=== PATIENT | female | born 1990 | race Caucasian/White ===

== ENCOUNTER 2025-05-03 15:19 | Day surgery (SDC) | payer OTHER ==
[2025-05-03] MEDS ORDERED: hydrALAZINE 20 MG/ML VIAL SLOW IVP PRN (15:32)
[2025-05-03 15:44] VITALS: BMI 29.2
[2025-05-03 17:18] LABS: Glucose, Urine (Dipstick) Normal (Negative); Leukocyte Negative (Negative); Protein, Urine (Dipstick) Negative (Neg-Trace); Specific Gravity, Urine 1.010 (1.005-1.030)
[2025-05-03 18:00] LABS: CAUTI Indications for Culture Pregnancy; WBC/HPF 0-3 HPF (0-3)
[2025-05-03 18:01] LABS: Bacteria/HPF 1+ HPF (None Seen)
[2025-05-03 18:03] LABS: Mucous/LPF 1+ LPF (<2+)
[2025-05-03 18:04] LABS: Urine Culture Reflex Yes Yes
== END 2025-05-03 18:30 | disposition home or self-care (01) ==
LOC: CSHLD/OP 15:19
PROVIDERS: ATTEND Family Medicine
DX: O22.42 Hemorrhoids in pregnancy, second trimester (principal); O99.891 Other specified diseases and conditions complicating pregnancy; N89.8 Other specified noninflammatory disorders of vagina; R10.2 Pelvic and perineal pain; Z3A.27 27 weeks gestation of pregnancy
CPT/HCPCS: 81001; 87086; 87480; 87510; 87660

== ENCOUNTER 2025-05-12 17:00 | Day surgery (SDC) | payer OTHER ==
[2025-05-12 17:46] VITALS: BMI 30.4
[2025-05-12 18:11] LABS: Fetal Membranes Rupture No Membranes Rupture (No Rupture)
== END 2025-05-12 19:53 | disposition home or self-care (01) ==
LOC: CSHLD/OP 17:00
PROVIDERS: ATTEND Family Medicine
DX: O36.8130 Decreased fetal movements, third trimester, not applicable or unspecified (principal); O09.43 Supervision of pregnancy with grand multiparity, third trimester; Z3A.30 30 weeks gestation of pregnancy; Z87.59 Personal history of other complications of pregnancy, childbirth and the puerperium; Z79.899 Other long term (current) drug therapy
CPT/HCPCS: 76819; 84112; 87480; 87510; 87660; 99285

== ENCOUNTER 2025-05-25 18:19 | Day surgery (SDC) | payer OTHER | END 2025-05-25 19:55 | disposition home or self-care (01) | LOC: CSHERS 18:19 → CSHLD/OP 18:29 | PROVIDERS: ATTEND Family Medicine | DX: O99.891 Other specified diseases and conditions complicating pregnancy (principal); M54.9 Dorsalgia, unspecified; M25.559 Pain in unspecified hip; O09.43 Supervision of pregnancy with grand multiparity, third trimester; Z3A.30 30 weeks gestation of pregnancy; Z79.899 Other long term (current) drug therapy | CPT/HCPCS: 99283 ==

== ENCOUNTER 2025-06-07 13:09 | Day surgery (SDC) | payer OTHER ==
[2025-06-07 13:36] VITALS: BMI 30.4
[2025-06-07] MEDS: Lidocaine 2% Viscous Solution 10 ML, Aluminum & Magnesium Hydroxide 30 ML SSW SCH (14:37)
[2025-06-07] MEDS ORDERED: Transdermal Patch Removal TOP SCH (21:00)
== END 2025-06-07 15:25 | disposition home or self-care (01) ==
LOC: CSHLD/OP 13:09
PROVIDERS: ATTEND Family Medicine
DX: O99.891 Other specified diseases and conditions complicating pregnancy (principal); R10.10 Upper abdominal pain, unspecified; M54.9 Dorsalgia, unspecified; M25.552 Pain in left hip; M25.551 Pain in right hip; Z3A.32 32 weeks gestation of pregnancy
CPT/HCPCS: 99283

== ENCOUNTER 2025-06-19 11:24 | Day surgery (SDC) | payer OTHER ==
[2025-06-19 11:55] VITALS: BMI 30.7
[2025-06-19] MEDS ORDERED: hydrALAZINE 20 MG/ML VIAL SLOW IVP PRN ×2 (12:17→13:23)
[2025-06-19 14:08] LABS: Glucose, Urine (Dipstick) Normal (Negative); Leukocyte 25 (Negative); Protein, Urine (Dipstick) Negative (Neg-Trace); Specific Gravity, Urine 1.005 (1.005-1.030)
[2025-06-19 14:35] LABS: Bacteria/HPF 1+ HPF (None Seen); CAUTI Indications for Culture Pregnancy; RBC/HPF 0-3 HPF (0-3); WBC/HPF 0-3 HPF (0-3)
[2025-06-19 14:36] LABS: Urine Culture Reflex Yes Yes
== END 2025-06-19 17:00 | disposition home or self-care (01) ==
LOC: CSHLD/OP 11:24
PROVIDERS: ATTEND Family Medicine
DX: O47.03 False labor before 37 completed weeks of gestation, third trimester (principal); O23.43 Unspecified infection of urinary tract in pregnancy, third trimester; O09.43 Supervision of pregnancy with grand multiparity, third trimester; O99.891 Other specified diseases and conditions complicating pregnancy; N89.8 Other specified noninflammatory disorders of vagina; Z3A.34 34 weeks gestation of pregnancy; Z87.59 Personal history of other complications of pregnancy, childbirth and the puerperium; Z79.899 Other long term (current) drug therapy
CPT/HCPCS: 81001; 87086; 87480; 87510; 87660

== ENCOUNTER 2025-07-03 11:30 | Day surgery (SDC) | payer OTHER ==
[2025-07-03 12:14] VITALS: BMI 32.2
[2025-07-03] MEDS ORDERED: hydrALAZINE 20 MG/ML VIAL SLOW IVP PRN (12:35)
== END 2025-07-03 14:13 | disposition home or self-care (01) ==
LOC: CSHLD/OP 11:30
PROVIDERS: ATTEND Family Medicine
DX: O36.8130 Decreased fetal movements, third trimester, not applicable or unspecified (principal); O99.891 Other specified diseases and conditions complicating pregnancy; R10.22 Pelvic and perineal pain left side; O09.523 Supervision of elderly multigravida, third trimester; O09.43 Supervision of pregnancy with grand multiparity, third trimester; Z3A.36 36 weeks gestation of pregnancy; Z98.51 Tubal ligation status; Z79.899 Other long term (current) drug therapy
CPT/HCPCS: 76819; 99282

== ENCOUNTER 2025-07-07 07:53 | Day surgery (SDC) | payer OTHER | END 2025-07-07 09:45 | disposition home or self-care (01) | LOC: CSHLD/OP 07:53 | PROVIDERS: ATTEND Family Medicine | DX: Z36.89 Encounter for other specified antenatal screening (principal); O09.523 Supervision of elderly multigravida, third trimester; O09.43 Supervision of pregnancy with grand multiparity, third trimester; O34.219 Maternal care for unspecified type scar from previous cesarean delivery; Z3A.36 36 weeks gestation of pregnancy; Z79.899 Other long term (current) drug therapy | CPT/HCPCS: 76819; 99283 ==

== ENCOUNTER 2025-07-16 12:46 | Day surgery (SDC) | payer OTHER ==
[2025-07-16 14:12] VITALS: BMI 31.7
[2025-07-16 14:17] LABS: Glucose, Urine (Dipstick) Normal (Negative); Leukocyte Negative (Negative); Protein, Urine (Dipstick) Negative (Neg-Trace); Specific Gravity, Urine 1.005 (1.005-1.030)
[2025-07-16 14:28] LABS: Bacteria/HPF 1+ HPF (None Seen); CAUTI Indications for Culture Pregnancy; RBC/HPF 0-3 HPF (0-3); WBC/HPF 0-3 HPF (0-3)
[2025-07-16 14:29] LABS: Urine Culture Reflex Yes Yes
[2025-07-16 14:35] LABS: Fetal Membranes Rupture No Membranes Rupture (No Rupture)
== END 2025-07-16 15:52 | disposition home or self-care (01) ==
LOC: CSHLD/OP 12:46
PROVIDERS: ATTEND Family Medicine
DX: O47.1 False labor at or after 37 completed weeks of gestation (principal); O09.523 Supervision of elderly multigravida, third trimester; O34.211 Maternal care for low transverse scar from previous cesarean delivery; O99.891 Other specified diseases and conditions complicating pregnancy; R11.0 Nausea; N89.8 Other specified noninflammatory disorders of vagina; M54.9 Dorsalgia, unspecified; Z3A.38 38 weeks gestation of pregnancy; Z79.899 Other long term (current) drug therapy
CPT/HCPCS: 81001; 84112; 87086; 99283

== ENCOUNTER 2025-07-19 10:27 | Observation (INO) | payer OTHER ==
[2025-07-19] MEDS ORDERED: hydrALAZINE 20 MG/ML VIAL SLOW IVP PRN ×2 (11:52→16:54)
[2025-07-19 13:11] LABS: Fetal Membranes Rupture No Membranes Rupture (No Rupture)
[2025-07-19] MEDS ORDERED: Ondansetron PF 4 MG/2 ML Vial IVP PRN (16:54)
[2025-07-19] MEDS ORDERED: Acetaminophen 500 MG TAB PO PRN (16:54)
[2025-07-20 06:09] LABS: Hematocrit 28.7 % (34.9-44.5); Hemoglobin 10.0 g/dL (12.0-15.5); Mean Corpuscular Hemoglobin 33.3 pg (27.0-33.0); Mean Corpuscular Volume 95.7 fL (81.6-98.3); Platelet Count 200 10x3/uL (150-450); Red Blood Cell (RBC) Count 3.00 10x6/uL (3.90-5.03); White Blood Cell (WBC) Count 9.26 10x3/uL (3.5-10.5)
[2025-07-20 06:43] LABS: Hep B Surf Ag - L&D Non-Reactive S/CO (NonReactive)
[2025-07-20 06:44] LABS: Syphilis Antibody Index 0.08 S/CO (<1.00 Non-Reactive)
== END 2025-07-20 12:00 | disposition home or self-care (01) ==
LOC: CSHLD/OP 10:27 → INTOOBSV 15:51 → CSHLD 15:51
PROVIDERS: ADMIT Family Medicine; ATTEND Family Medicine
DX: O47.1 False labor at or after 37 completed weeks of gestation (principal); O09.523 Supervision of elderly multigravida, third trimester; O09.43 Supervision of pregnancy with grand multiparity, third trimester; O34.211 Maternal care for low transverse scar from previous cesarean delivery; Z3A.38 38 weeks gestation of pregnancy; Z79.899 Other long term (current) drug therapy
CPT/HCPCS: 36415; 84112; 85027; 86780; 86850; 86870; 86900; 86901; 87340; 99285; G0378

== ENCOUNTER 2025-07-22 05:42 | Inpatient (IN) | payer MEDICAID, OTHER ==
[2025-07-22] MEDS ORDERED: Methylergonovine 0.2 MG/ML VIAL IM PRN (05:49)
[2025-07-22] MEDS ORDERED: Carboprost 250 MCG/ML AMP IM PRN (05:49)
[2025-07-22] MEDS ORDERED: Tranexamic Acid 1,000 MG/10 ML VIAL IVP PRN (05:49)
[2025-07-22] MEDS ORDERED: hydrALAZINE 20 MG/ML VIAL SLOW IVP PRN ×2 (05:49→13:44)
[2025-07-22] MEDS ORDERED: Ondansetron PF 4 MG/2 ML Vial IVP PRN ×4 (05:49→13:44)
[2025-07-22] MEDS ORDERED: Bicitra 30 ML UDCUP PO PRN (05:49)
[2025-07-22] MEDS ORDERED: Diphenoxylate HCl/Atropine Tablet PO PRN (05:49)
[2025-07-22] MEDS ORDERED: Oxytocin 30 units/NS 500 ML 500 ML IV SCH (06:00)
[2025-07-22 06:04] VITALS: BMI 32.5
[2025-07-22 06:50] LABS: Hematocrit 30.5 % (34.9-44.5); Hemoglobin 11.0 g/dL (12.0-15.5); Mean Corpuscular Hemoglobin 33.7 pg (27.0-33.0); Mean Corpuscular Volume 93.6 fL (81.6-98.3); Platelet Count 230 10x3/uL (150-450); Red Blood Cell (RBC) Count 3.26 10x6/uL (3.90-5.03); White Blood Cell (WBC) Count 10.64 10x3/uL (3.5-10.5)
[2025-07-22 07:08] LABS: Syphilis Antibody Index 0.09 S/CO (<1.00 Non-Reactive)
[2025-07-22 07:09] LABS: Hep B Surf Ag - L&D Non-Reactive S/CO (NonReactive)
[2025-07-22] MEDS: Famotidine/PF 20 mg/2ml Vial SLOW IVP PRN (08:31)
[2025-07-22] MEDS ORDERED: Meperidine HCl/PF 25 MG (1 mL) VIAL SLOW IVP PRN (09:13)
[2025-07-22] MEDS ORDERED: Ketorolac Tromethamine 30 MG (1 mL) VIAL IVP PRN (09:13)
[2025-07-22] MEDS ORDERED: diphenhydrAMINE 50 MG/ML VIAL IVP PRN (09:13)
[2025-07-22] MEDS ORDERED: Communication Order-Pharmacy FS SCH (09:15)
[2025-07-22] MEDS ORDERED: Ketorolac Tromethamine 30 MG (1 mL) VIAL IVP SCH (09:15)
[2025-07-22] MEDS ORDERED: Lanolin Ointment 7 GM TUBE TOP PRN (13:44)
[2025-07-22] MEDS ORDERED: Acetaminophen 325 MG TAB PO PRN (13:44)
[2025-07-22] MEDS ORDERED: diphenhydrAMINE 25 MG CAP PO PRN (13:44)
[2025-07-22] MEDS ORDERED: Bisacodyl 10 MG SUPP PR PRN (13:44)
[2025-07-22] MEDS: Erythromycin Base 0.5% Oint 1 GM TUBE ONE (13:53)
[2025-07-22] MEDS: Ketorolac Tromethamine 30 MG (1 mL) VIAL ONE (13:54)
[2025-07-22] MEDS: Ondansetron PF 4 MG/2 ML Vial ONE (13:54)
[2025-07-22] MEDS: PHENYLEPHRINE-NS 100 MCG/ML 10 ML SYRINGE ONE (13:54)
[2025-07-22] MEDS: Oxytocin 10 UNITS/ML VIAL ONE (13:54)
[2025-07-22] MEDS: Phenylephrine 40 MG/NS 250 ML 250 ML ONE (13:54)
[2025-07-22] MEDS: Ketorolac Tromethamine 30 MG (1 mL) VIAL IVP SCH (17:30)
[2025-07-22] MEDS: Simethicone Chewable 80 MG TAB PO PRN (17:30)
[2025-07-22] MEDS ORDERED: Meperidine HCl/PF 25 MG (1 mL) VIAL IM PRN (21:15)
[2025-07-22] MEDS: Ferrous Sulfate 325 MG TAB PO SCH (22:42)
[2025-07-23 04:46] LABS: Hematocrit 26.5 % (34.9-44.5); Hemoglobin 9.2 g/dL (12.0-15.5); Mean Corpuscular Hemoglobin 33.7 pg (27.0-33.0); Mean Corpuscular Volume 97.1 fL (81.6-98.3); Platelet Count 184 10x3/uL (150-450); Red Blood Cell (RBC) Count 2.73 10x6/uL (3.90-5.03); White Blood Cell (WBC) Count 10.58 10x3/uL (3.5-10.5)
[2025-07-23] MEDS: HYDROcodone/Acetaminophen 5/325 mg Tablet PO PRN (14:12)
[2025-07-23] MEDS: Ibuprofen 800 MG TAB PO SCH (14:13)
[2025-07-24] MEDS: HYDROcodone/Acetaminophen 5/325 mg Tablet PO PRN (18:40)
[2025-07-25 08:34] VITALS: BP 121/73; TEMP 98.7
== END 2025-07-25 10:15 | disposition home or self-care (01) | DRG 785 ==
LOC: CSHLD 05:42 → CSHPP 13:22
PROVIDERS: ADMIT Family Medicine; ATTEND Family Medicine
PROC: 10D00Z1 Extraction of Products of Conception, Low, Open Approach (ICD-10-PCS; principal; 2025-07-22)
PROC: 0UT70ZZ Resection of Bilateral Fallopian Tubes, Open Approach (ICD-10-PCS; 2025-07-22)
PROC: 3E033XZ Introduction of Vasopressor into Peripheral Vein, Percutaneous Approach (ICD-10-PCS; 2025-07-22)
PROC: 3E0334Z Introduction of Serum, Toxoid and Vaccine into Peripheral Vein, Percutaneous Approach (ICD-10-PCS; 2025-07-22)
DX: O34.211 Maternal care for low transverse scar from previous cesarean delivery (principal); O99.214 Obesity complicating childbirth; Z37.0 Single live birth; Z3A.37 37 weeks gestation of pregnancy; Z79.899 Other long term (current) drug therapy; Z79.82 Long term (current) use of aspirin
CPT/HCPCS: 36415; 51702; 85027; 85461; 86780; 86850; 86900; 86901; 87340; 88302; 90384; 96372; C1889; J1308; J1885; J2274; J2405; J2590; S3620